=== PATIENT | female | born 2000 | race African-American/Black ===

== ENCOUNTER 2020-02-10 11:09 | Inpatient (IN) | payer OTHER ==
[2020-02-10] MEDS ORDERED: hydrALAZINE 20 MG/ML VIAL SLOW IVP PRN ×2 (11:56→22:14)
[2020-02-10 11:57] VITALS: BMI 26.2
--- NOTE | 2020-02-10 12:06 | PDOC.FPROB ---
FMR OB H&P: HPI - History of Present Illness Chief Complaint: elevated blood pressure History of Present Illness: 19 y/o at 34.5 wks 18.6 wk sono not c/w unsure LMP, sent from [facility] for elevated blood pressures in the severe range during her clinic appt this AM. She reports some elevated BPs on her past few visits. No known history of cHTN although has not had her BP checked outside of . She endorses swelling of the hands, face, and feet to her ankles. Reports her shoes are fitting more snugly than usual. Also endorses pressure like headache on the top of her head that has began since her arrival here in the hospital. Denies any vision changes, SOB, chest pain, palpitations, RUQ pain. Reports she was late to care but otherwise her has been uncomplicated. Per [facility] report she was having RUQ pain earlier today although she denies this here. No urinary complaints. No VB, LOF, vaginal discharge. Endorses movement. Primary Care Physician: JULY Echeverria FMR OB H&P: Current - Care : 2 Para: 0101 Gestational age: 34.5 wks Due date: 03/18/20 Dating Criteria: 18.6 wk sono not c/w unsure LMP Course/Complications: Late to care Trichomonas - treated, unsure of MATTHEW Tobacco use in - OB Labs Blood type: A RH: positive Antibody Screen: negative HIV: negative RPR: negative HepBsAg: negative Rubella: immune Quad screen: positive (Neural tube defect) Urine drug screen: positive (marijuana on) Gonorrhea: negative Chlamydia: negative FMR OB H&P: History - Past Medical History PMH: denies any PMHx - OB History OB History: Hx delivery at 36.5 wks - - METAL POLISHER History METAL POLISHER History: Hx trichimonas - treated - Surgical History Sx History: denies past surgeries - Social History Social History: Tobacco use - 5 cig/day prior to , 1-2 cig/day during Hx marijuana use before , denies during Denies etoh or other drug use - Family History Family History: Pt does not know family hx FMR OB H&P: Medications - Current Allergies/Adverse Reactions: Allergies Allergy/AdvReac Type Severity Reaction Status Date / Time No Known Drug Allergies Allergy Verified 02/10/20 12:01 FMR OB H&P: ROS - Review of Systems General: denies: fever/chills, fatigue Eyes: denies: vision changes, double vision, scotomas, floaters ENT: denies: nasal congestion, rhinorrhea, sore throat Cardiovascular: reports: edema. denies: chest pain, palpitation Respiratory: denies: cough, congestion, shortness of breath Gastrointestinal: reports: cramping. denies: abdominal pain, nausea, vomiting, diarrhea, constipation Genitourinary (Female): denies: dysuria, hematuria, polyuria, vaginal discharge, vaginal pain, vaginal bleeding, contractions, vaginal pressure Musculoskeletal: denies: pain Neurologic: reports: headache Integumentary: denies: rash Endocrine: denies: polyuria FMR OB H&P: Vital Signs - Maternal Vital signs: BP: 164/104 HR 54 SpO2 98% - Heart Tones Baseline: 155 Variability: minimal Acceleration: absent Deceleration: variable [place] contractions every: none FMR OB H&P: Physical Exam - Physical Exam General: NAD, awake, alert and oriented HEENT: normocephalic and atraumatic, MMM, grossly normal vision, grossly normal hearing, good dention Neck: supple, no LAD Heart: RRR, normal S1/S2, pulses present, other (mild pedal edema) General: CTAB, no respiratory distress, good air movement, no wheezing Abdomen: soft, gravid, non-tender, bowel sound present Musculoskeletal: pulses present Neurological: sensation to pain,touch and proprioception grossly normal, DTR +2, no clonus Skin: no rash Lymphatic: no unusual bruising or bleeding Psychiatric: intact recent and remote memory, good judgement and insight, normal mood and affect FMR OB H&P: A/P - Problem List (1) Current Visit: Yes Status: Acute Qualifiers: Weeks of gestation: 34 weeks Qualified Code(s): Z3A.34 - 34 weeks gestation of (2) affected by intrauterine growth retardation (IUGR) Current Visit: Yes Status: Acute Code(s): O36.5990 - MATERN CARE FOR OTH OR SUSP POOR FETL GRTH, UNSP TRI, UNSP (3) Substance abuse 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 Initially established care in [place]. Hx previous vaginal delivery 08/08/2016 - denies complications with prior or delivery. - cephalic on sono - FHT and toco monitoring - gave 1 dose steroids, repeat in 24 hours - collect GBS swab Pre-eclampsia w/ severe features Multiple severe range pressures with headache and swelling. - treat BP >160/110 - q15 min BP monitoring - hydralazine, labetalol PRN for severe pressures - will admit and start Mg - Mg check q2h - strict I/O and hourly UOP - check CBC, CMP, urine pr/cr ratio, uric acid, ldh - consider early induction pending clinic course IUGR S<D - less than 1% including adjustment for new G[place] after 18.6 wk sono. Referred to MFM in outpatient setting - growth + BPP ordered Tobacco use in Current tobacco use 2 cig/day - encourage tobacco cessation Positive quad screen Positive for neural tube defects - aware Marijuana use in Positive UDS in 10/2019; repeat UDS in 01/2020 cannabinoids reflexed and quant THC was neg. - check UDS today Hx trichomonas s/p treatment with metronidazole for patient and partner, no documented MATTHEW - Gc/ct, trichomonas collected today Social: KIRK lives in [place], not involved. Discussion: Date/Time: 02/10/20 2647 This H&P was discussed with Dr. Echeverria and Dr. Salgado who agree with the above documentation and plan. Addendum - Attending - Attending Attestation Date/Time: 02/10/20 8374 I personally evaluated the patient and discussed the management with resident team I agree with the History, Examination, Assessment and Plan documented above with any addition or exceptions noted below. Admit for preeclampsia with severe features. Start mag and steroids. Will determine route of delivery after US. Maddie
[2020-02-10] MEDS ORDERED: Labetalol HCl 100 MG/20 ML VIAL SLOW IVP ONE (12:15)
[2020-02-10] MEDS ORDERED: Labetalol HCl 100 MG/20 ML VIAL ONE (12:15)
[2020-02-10] MEDS ORDERED: Ondansetron PF 4 MG/2 ML Vial IVP PRN ×3 (12:16→22:14)
[2020-02-10] MEDS ORDERED: Promethazine HCl 25 MG/ML VIAL IM PRN ×2 (12:16→17:09)
[2020-02-10] MEDS ORDERED: Betamet Acet/Betamet Na Ph 30 MG/5 ML VIAL IM SCH (12:30)
[2020-02-10] MEDS ORDERED: Calcium Gluc 4.6 MEQ/10 ML (100 MG/ML) SLOW IVP PRN (12:32)
[2020-02-10] MEDS ORDERED: Magnesium Sulfate 20 GM/WATER 500 ML BAG IVPB SCH (12:45)
[2020-02-10] MEDS ORDERED: FLU VACC QS2020-21(6MOS UP)/PF 60 MCG/0.5 ML SYRINGE IM ONE (12:45)
[2020-02-10] MEDS ORDERED: hydrALAZINE 20 MG/ML VIAL SLOW IVP SCH (12:45)
[2020-02-10 13:08] LABS: Creatinine, Urine 47.23 mg/dL (47-110)
[2020-02-10 13:09] LABS: Platelet Count 105 thou/uL (130-400)
[2020-02-10 13:10] LABS: Hemoglobin 13.1 g/dL (12.0-16.0); Mean Corpuscular Hemoglobin 31.3 pg (25.0-35.0); Mean Corpuscular Volume 92.3 fL (78.0-98.0); Mean Platelet Volume 14.7 fL (7.4-10.4); RBC Distribution Width 17.9 % (11.5-14.5); Red Blood Cell (RBC) Count 4.18 mill/uL (4.00-5.20); White Blood Cell (WBC) Count 9.1 thou/uL (4.8-10.8)
[2020-02-10 13:25] LABS: HBSAg Index 0.17 S/CO (0-0.99); Hep B Surf Ag Non-Reactive S/CO (NonReactive)
[2020-02-10] MEDS: Magnesium Sulfate 20 gm/500 ml 20 GM/500 ML BAG IVPB SCH ×2 (13:26→21:40)
[2020-02-10 13:32] LABS: PTT 27.5 sec (22.9-36.1)
--- NOTE | 2020-02-10 13:35 | ULT ---
ULTRASOUND BIOPHYSICAL PROFILE: DATE: 02/10/2020 HISTORY: 19-year-old female. Evaluate for growth. FINDINGS: breathin tone: 2 movement: 2 Amniotic fluid volume: 0 IMPRESSION: Normal biophysical profile score of 4 out of 8, excluding the nonstress test.
[2020-02-10 13:41] LABS: #Eosinphils 0.1 thou/uL (0.0-0.7); #Lymphocytes 3.3 thou/uL (1.20-3.40); #Monocytes 0.6 thou/uL (0.11-0.59); #Neutrophils 5.3 thou/uL (1.40-6.50); %Basophils 0.5 % (0.0-1.0); %Eosinophils 0.9 % (0.0-10.0); %Lymphocytes 35.3 % (28.0-48.0); %Monocytes 6.6 % (0.0-4.0); %Neutrophils 56.7 % (31.0-61.0); Anisocytosis SLIGHT = 6-15 cells (100X) (0-5/hpf); Hemoglobin 12.9 g/dL (12.0-16.0); Large Platelets SLIGHT; MDiff Complete? YES; Mean Corpuscular HGB CONC 35.6 g/dL (32.0-36.0); Mean Corpuscular Hemoglobin 32.4 pg (25.0-35.0); Mean Corpuscular Volume 91.1 fL (78.0-98.0); Mean Platelet Volume 12.6 fL (7.4-10.4); Platelet Count 105 thou/uL (130-400); Platelet Morphology Comment Appears Decreased; Polychromasia MODERATE = 3-4 cells (100X) (0-2/hpf); RBC Distribution Width 16.9 % (11.5-14.5); Red Blood Cell (RBC) Count 3.98 mill/uL (4.00-5.20); Reflex for Review?? NO; Schistocytes MODERATE= 6-15 cells (100X) (0-1/hpf); Target Cells SLIGHT = 2-5 cells (100X) (0-1/hpf); Tear Drops SLIGHT = 2-5 cells (100X) (0-1/hpf); White Blood Cell (WBC) Count 9.4 thou/uL (4.8-10.8)
--- NOTE | 2020-02-10 13:44 | ULT ---
OB ULTRASOUND ULTRASOUND BIOPHYSICAL PROFILE: HISTORY: growth, distress FINDINGS: A single live intrauterine gestation is seen with measurements corresponding to an estimated gestatio nal age of 27 weeks, 1 dayand GERMAIN at 05/10/2020. The estimated weight measures 934 g or 2 pounds, 1 ounces biometry: BPD: 7.02 cm, 28 weeks 1 day HC: 25.61 cm, 27 weeks 6 days AC: 20.87 cm, 25 weeks 3 days FL: 5.06 cm, 27 weeks, 1 day heart rate: 139bpm Placenta: Posterior Placenta previa: No OTIS: 10.4cm OB biophysical profile: tone: 2 breathin movements: 2 Amniotic fluid:0 IMPRESSION: 1. Single live intrauterine gestation of 27 weeks 1 dayestimated gestational age and GERMAIN at 05/10/2020 2. The ultrasound biophysical profile score is 4 out of 8. 3. Oligohydramnios
[2020-02-10 14:04] LABS: ALT (SGPT) 18 U/L (8-55); AST (SGOT) 31 U/L (5-30); Albumin 3.2 g/dL (3.5-5.0); Alkaline Phosphatase 275 U/L (40-100); Anion Gap 17 mmol/L (10-20); BUN (Urea Nitrogen) 11 mg/dL (8.4-21.0); Bilirubin, Total 0.2 mg/dL (0.2-1.2); Calc. Creatinine Clearance 136 mL/min (70-130); Calcium 8.8 mg/dL (7.8-10.44); Carbon Dioxide 19 mmol/L (22-29); Chloride 105 mmol/L (98-107); Globulin 3.5 g/dL (2.4-3.5); Glucose 65 mg/dL (70-105); Potassium 4.7 mmol/L (3.5-5.1); Protein, Total 6.7 g/dL (6.0-8.3); Sodium 136 mmol/L (136-145); Uric Acid 5.2 mg/dL (2.6-6.0)
[2020-02-10] MEDS ORDERED: NS w/ Oxytocin 10 units 500 ML IV SCH (14:15)
--- NOTE | 2020-02-10 14:15 | PDOC.BPN ---
<Charisse Stovall - Last Filed: 02/10/20 14:26> - Brief Progress Note BPP: 6/8, with OTIS 4.4 (MVP 2.3). No breathing. BP several in severe range, started on treatment, Q15 min BP. BP improved. JONES present and improved since BP lowered. SVE: 3/50/-3 JOHNSTON score: 5 performing contraction stress test FHT'S: 155 baseline, with variable decels. no ctx. labs: plt 105 urine pro/cr 1 JONES Will order TORCH titers. Will send placenta for path collected GBS, GC/C/Trich Consult[employer] LEXA, and letting build master hospitalist know of her presence on floor. <Randi Salgado - Last Filed: 02/11/20 14:39> - Brief Progress Note Attending Note: Cat 2 to intermittent cat 1 tracing. Largely favorable cervical exam. Will attempt contraction stress test to see if vaginal delivery an option. Also discussed concerns for possible fragility of fetus for vaginal delivery if complications arise during 2nd stage. Maddie
[2020-02-10 15:31] LABS: SARS-CoV-2 NAA Rapid Test Not Detected (NotDetected)
[2020-02-10 15:33] LABS: Amphetamine Not Detected (NotDetected); Barbiturates Screen Not Detected (NotDetected); Benzodiazepine Screen Not Detected (NotDetected); Cocaine Metabolite Screen Not Detected (NotDetected); Medtox Control Line Valid? VALID (VALID); Medtox Reader # READER 1; Methadone Not Detected (NotDetected); Methamphetamine Not Detected (NotDetected); Opiate Screen Not Detected (NotDetected); Oxycodone Screen Not Detected (NotDetected); Phencyclidine (PCP) Not Detected (NotDetected); THC/Cannabinoid Screen Detected (NotDetected); Tricyclic Screen Not Detected (NotDetected)
[2020-02-10] MEDS ORDERED: Morphine PF 10 MG/10 ML VIAL ONE (15:53)
[2020-02-10] MEDS ORDERED: ePHEDrine 50 MG/ML VIAL ONE (15:54)
[2020-02-10] MEDS ORDERED: PHENYLEPHRINE-NS 100 MCG/ML 10 ML SYRINGE ONE (15:54)
[2020-02-10] MEDS ORDERED: Ketorolac Tromethamine 30 MG/ML VIAL ONE (15:54)
[2020-02-10] MEDS ORDERED: Oxytocin 10 UNITS/ML VIAL ONE ×2 (15:54→17:11)
[2020-02-10] MEDS ORDERED: Ondansetron PF 4 MG/2 ML Vial ONE (15:54)
[2020-02-10] MEDS ORDERED: Bicitra 30 ML UDCUP ONE (15:58)
--- NOTE | 2020-02-10 16:02 | PDOC.BPN ---
<Charisse Stovall - Last Filed: 02/10/20 15:57> - Brief Progress Note Pt has had minimal variability on FHT strip observed since admission. 130 baseline, with min variability, and intermittent accels, and variable decels present. Pt was given some fruit just, which did not help with the FHT's. pt experienced one contraction and fetus had a variable deceleration on on monitor. Pt was not able to undergo a contraction stress due to non-reassuring FHT's before starting. Due to pt not being near delivery, and non-reassuring FHT's, oligohydramnios, IUGR, and pre-e with severe features pt counseled on delivery via pLTCS. Pt is agreeable to plan. She was counseled on risk and benefits of procedures and consents to a pLTCS. Care plan discussed with Dr. Salgado, who is in agreement with above stated plan. <Randi Salgado - Last Filed: 02/11/20 14:36> - Brief Progress Note Attending Note: I was present during the above conversation. Maddie
[2020-02-10] MEDS ORDERED: CEFAZOLIN 2 GM in Premix Bag 1 BAG IVPB SCH (16:30)
[2020-02-10] MEDS ORDERED: Bicitra 30 ML UDCUP PO SCH (17:00)
[2020-02-10] MEDS ORDERED: Promethazine HCl 25 MG SUPP PR PRN (17:09)
[2020-02-10] MEDS ORDERED: Naloxone HCl 0.4 mg/ml Vial IVP PRN ×2 (17:09)
[2020-02-10] MEDS ORDERED: Meperidine HCl/PF 25 MG/ML VIAL SLOW IVP PRN (17:09)
[2020-02-10] MEDS ORDERED: Naloxone HCl 0.4 mg/ml Vial IV PRN (17:09)
[2020-02-10] MEDS ORDERED: diphenhydrAMINE 50 MG/ML VIAL IVP PRN (17:09)
[2020-02-10] MEDS ORDERED: Ketorolac Tromethamine 30 MG/ML VIAL IVP PRN (17:09)
[2020-02-10] MEDS ORDERED: HYDROmorphone 2 MG/ML VIAL SLOW IVP PRN (17:09)
[2020-02-10] MEDS ORDERED: L&D-Morphine 4 MG/ML VIAL SLOW IVP PRN (17:09)
[2020-02-10] MEDS ORDERED: Ondansetron HCl/PF 4 MG/2 ML Vial IVP PRN (17:09)
[2020-02-10] MEDS ORDERED: Communication Order-Pharmacy FS SCH (17:15)
[2020-02-10] MEDS ORDERED: Ketorolac Tromethamine 30 MG/ML VIAL IVP SCH (17:15)
--- NOTE | 2020-02-10 18:05 | PDOC.OPDEL ---
OB Operative/Delivery Note Delivery Dr/Surgeon: Dr. Stovall, with Dr. Salgado attending Assist: Dr. Reeves Pre-Delivery Diagnosis: non-reassuring tracing, other (Pre-E with severe features IUGR Oligohydramnios) Procedure/Post Delivery Dx: primary low transverse CS Weeks gestation: 34 (34.5) Anesthesia: spinal - Additional Findings/Plan Placenta delivered: manual removal findings: low transverse hysterotomy without extension Estimated blood loss: 140 mL Compilations/Other Findings: Date of Procedure: 02/10/20 Resident Surgeons: Dr. Stovall Attending Surgeon: Dr. Salgado Assist surgeon: Dr. Reeves Procedure: Primary low transverse caesarean section Preoperative Diagnosis: 1) Pre-Term intrauterine @ 34.5 weeks dated by 18.6 week sono 2) Severe IUGR <1% hadlock 3) Marijuana and tobacco use d/o 4) Oligohydramnios 5) Non-reassuring FHT's 6) Pre-E with severe features 7) Incomplete care 8) Hx of spontaneous labor/ delivery at 36 wks 9) GBS unknown Postoperative Diagnosis: 1) SGA Pre-Term delivered 2) same as above Anesthesia: spinal Indications: 19 year old @ 34.5 wks by 18.6 wk sono presents for Pre-E with severe features. Further workup and evaluation pt was found to have oligohydramnios, severe IUGR, and non-reassuring FHT's (persistent cat II tracing) leading to a primary LTCS due to being far from an imminent delivery. Procedure in Detail: After risks, benefits, and alternatives were explained to the patient, she gave informed consent. Pre-operative antibiotics included ancef 2 g. The patient was taken to the operating room and spinal anesthesia was placed. FHT with doppler demonstrated 140 prior to procedure. She was placed in the supine position with a left tilt and prepped and draped in usual sterile fashion. A Pfannenstiel incision was made with a scalpel and carried down to the level of the fascia which was sharply nicked. The fascial cut was extended bilaterally bluntly. The inferior and superior edges of the fascial edges were elevated with Eli clamps and the underlying rectus muscles bluntly and sharply dissected free. The recti were divided using blunt dissection. The peritoneum was entered bluntly and retracted manually. The uterus was palpated and found to be free of adhesions and very small. Karla-O was placed. There was a palpable lower uterine segment that was well developed. A low transverse score was made with the scalpel and the uterus was entered in the midline with the scalpel. Two babcocks were placed to assist with the lower unterine segment hysterotomy to prevent iatrogenic trauma to small infant. Amniotomy performed and there was no amniotic fluid visualized or suctioned. The hysterotomy was extended manually. The infant was noted to be vertex and was easily and gently delivered by fundal pressure. Cord blood milked, clamped and cut. A very small female was taken to the NICU warming table with Loop Machine Operator Dr. Barnes at bedside. Cord blood was obtained. Small placenta was manually extracted, found to be intact, with marginal insertions and small diameter 3 vessel cord. Sent to path. The uterus was externalized and curetted with a dry lap, while damp lap was placed over the fundus. Ring forcep was applied to the inferior hysterotomy edge for hemostasis and the endometrium was curetted with a dry lap. The hysterotomy was closed with a running locking 0-Monocryl in the usual fashion with tags on lateral edges. An imbricating layer was placed with a running 0-Monocryl in the usual fashion which achieved good hemostasis. The uterus was internalized and hysterotomy was again noted to be hemostatic. The karla-O was externalized. The hysterotomy tags were then cut. Posterior and lateral to the uterus was suctioned with the use of dry lap and yanker suction. The rectus was evaluated for bleeders, and found to be hemostatic. The fascia was closed with a running non-locking 0-PDS suture. The subcutaneous tissue was irrigated and the bleeders were attended to with bovie. The sub- cutaneous layer was closed with 3 interrupted plain gut suture. The skin was approximated with huyen and a pressure bandage was placed. All counts were correct X3. The patient tolerated the procedure well and was taken to LDR-10 for mag IV therapy in stable condition. QBL: 140 ml Time of delivery: 1651 Complications: None Specimens: placenta to path due IUGR, oligohydramnios Findings: SGA Pre-term female. Small placenta, marginal cord insertion and small 3VC. Drains: Sheth to gravity draining clear urine Attending Note: I was present and participated in the above documented procedure. Patient was a 19 yo female at 34.5 wks by 18.6 wk sono with severely growth restricted fetus, low amniotic fluid, preeclampsia with severe features, incomplete care, elevated msAFP, and polysubstance use. Patient admitted and quickly started on mag sulfate for seizure ppx. BMZ x 1 given. EFW < 1000g. Persistent cat 2 tracing with intolerance to labor. heart tracing noted to have deep varible decels with spontaneous contractions and minimal variblity. R/B/A discussed. Questions answered. Patient agreed with team that best option would be delivery via PLTCS due to size and heart rate findings. Yaron consulted and spoke with patient about outcome expectations. Laborist consulted and aware to case. Patient taken back to OR when available and the above procedure performed as do cumented. No complications. Count correct x 3. Will continue routine pp care and pp preE. Maddie Post delivery plan: recovery in LICU
[2020-02-10] MEDS ORDERED: Sodium Chloride 0.9% 1,000 ML IV SCH (21:15)
[2020-02-10 21:46] LABS: Hemoglobin 13.2 g/dL (12.0-16.0); Mean Corpuscular HGB CONC 34.1 g/dL (32.0-36.0); Mean Corpuscular Hemoglobin 30.9 pg (25.0-35.0); Mean Corpuscular Volume 90.7 fL (78.0-98.0); RBC Distribution Width 19.8 % (11.5-14.5); Red Blood Cell (RBC) Count 4.27 mill/uL (4.00-5.20); White Blood Cell (WBC) Count 21.9 thou/uL (4.8-10.8)
--- NOTE | 2020-02-10 21:47 | PDOC.PP ---
Post Progress Note Post Day #: 0 Subjective: We received a call from the nurse that patient had a rectal temperature of 92.5 and a pulse in the low 50s. We went up to see the patient. Patient states that she was feeling light-headed. Vitals: pulse 51, BP 134/75, 100 on RA. Denies headaches, vision changes, chest pain, shortness of breath. She notes mild pain at the incision site, mild vaginal bleeding, +flatus. Her UOP is 115cc/hr. PO intake tolerated: no Flatus: yes Ambulation: no Vital Signs (12 hours) Pulse BP 02/10/20 12:49 61 167/98 H 02/10/20 12:14 62 177/102 H Weight Weight 63.049 kg - Physical Examination General: NAD Cardiovascular: no m/r/g, RRR Respiratory: clear to auscultation bilaterally, non-labored breathing Abdominal: + bowel sounds, no distention, appropriately TTP Extremities: negative homans (B) Skin: CS incision dry & intact, no rash Neurological: no gross focal deficits Psychiatric: A&Ox3, normal affect Result Diagrams: 02/12/20 10:47 02/12/20 08:22 Additional Labs: Post Labs Hep Bs Antigen Non-Reactive S/CO (NonReactive) 02/10/20 12:29 Blood Type A POSITIVE 02/10/20 12:54 - Assessment/Plan 19 yo G2now P2 @ 34.5 weeks who delivered @ 1651 on 02/19, no complications, QBL 140 Delivery, pLTCs Delivery due to PreE with severe features and nonreassuring FHTs 4 hour post check, patient is hypothermic, bradycardic, BP and O2 sats stable, + light-headed - gave 1L LR bolus - ordered stat CBC, TSH, free T4, continuous temperatures PreEclampsia with severe features Pre-Csection BPs of 180/120, 170/120 Mag started immediately following delivery Current BPs 120s-130s systolic Mag check: UOP 115cc/hr, reflexes 3+ - repeat mag check in 4 hours I have discussed the patient with Dr. Galindo and he is agreement with the plan. Addendum - Attending - Attending Attestation Date/Time: 03/09/20 1009 I personally evaluated the patient and discussed the management with Dr. Valenzuela on 02/10/20. I agree with the History, Examination, Assessment and Plan documented above with any addition or exceptions noted below. Presumtpive sepsis d/t IUI. Cx and abx's. Stabilize hemodynamically.
[2020-02-10 22:12] LABS: Free T4 (Free Thyroxine) 0.74 ng/dL (0.70-1.48); Thyroid Stimulating Hormone 0.8393 uIU/mL (0.35-4.94)
[2020-02-10] MEDS ORDERED: Acetaminophen 325 MG TAB PO PRN (22:14)
[2020-02-10] MEDS ORDERED: diphenhydrAMINE 25 MG CAP PO PRN (22:14)
[2020-02-10] MEDS ORDERED: Adacel (T-DAP) 0.5 ML SYRINGE IM ONE (22:14)
[2020-02-10] MEDS ORDERED: Magnesium Sulfate 20 gm/500 ml 20 GM/500 ML BAG IVPB SCH (22:14)
[2020-02-10] MEDS ORDERED: Calcium Gluconate 4.6 MEQ in Sodium Chloride 0.9% 100 ML IVPB PRN (22:14)
[2020-02-10] MEDS ORDERED: Lactated Ringer's 1,000 ML IV SCH (22:15)
[2020-02-10] MEDS ORDERED: Docusate Calcium (SURFAK) 240 MG CAP PO SCH (22:30)
[2020-02-10 22:34] LABS: Band 10 % (5-11); Large Platelets SLIGHT; Lymphocytes 7 % (28-48); MDiff Complete? YES; Mean Platelet Volume 14.4 fL (7.4-10.4); Neutrophil 83 % (31-61); Platelet Count 118 thou/uL (130-400); Platelet Morphology Comment Appears Decreased; Schistocytes MODERATE= 6-15 cells (100X) (0-1/hpf)
[2020-02-10] MEDS ORDERED: Gentamicin 270 MG in Sodium Chloride 0.9% 100 ML IVPB SCH (23:30)
[2020-02-10] MEDS ORDERED: AMPicillin 2 MG in Syringe 0 ML SLOW IVP SCH (23:59)
[2020-02-11] MEDS: Ampicillin 2 GM in Sodium Chloride 0.9% 100 ML IVPB SCH ×2 (02:05→07:59)
--- NOTE | 2020-02-11 02:06 | PDOC.BPN ---
- Brief Progress Note Patient is a 19 yo G2now P2 @ 34.5 weeks who delivered @ 1651 on 02/19 via pLTCs due to PreE with severe features and nonreassuring FHTs, QBL 140. Patient is resting comfortably in bed. She states that she is still feeling a little light-headed. She denies chest pain, shortness of breath, vision changes. Notes mild abdominal pain at the incision site. Heart: RRR no MRG Lungs: CTAB HEENT: patient has dry mucous membranes Skin: incision clean, dry and intact LE: no edema, patellar reflexes 2+ Vitals: 100s-120s systolic bps, pulse now 60s-70s, last temperature 97.6 UOP: 115cc/hr A/P PreEclampsia with severe features Pre-Csection BPs of 180/120, 170/120 Mag started immediately following delivery 02/19 @ 1651 Current BPs 100s-130s systolic Mag check: UOP 115cc/hr, reflexes 2+ NPO d/t mag checks, pt appears dry - mIVFs @ 100 - repeat mag check in 4 hours Endometritis Hypothermia resolved, no longer bradycardic TSH, FreeT4 wnl; CBC showed white count 21.6, Hgb 13 - patient started on gentmycin and ampicillin for 24 hrs - continuous temperature monitoring - continue jodi
[2020-02-11] MEDS: Lactated Ringer's 1,000 ML IV SCH ×2 (03:55→17:52)
--- NOTE | 2020-02-11 05:47 | PDOC.BPN ---
- Brief Progress Note Patient is a 19 yo G2now P2 @ 34.5 weeks who delivered @ 1651 on 02/19 via pLTCs due to PreE with severe features and nonreassuring FHTs, QBL 140. Patient is resting comfortably in bed. She states that she is having a mild room-spinning dizziness when she moves around a lot. She denies chest pain, shortness of breath, vision changes. Notes mild abdominal pain at the incision site. Heart: RRR no MRG Lungs: CTAB HEENT: patient has dry mucous membranes Skin: incision clean, dry and intact LE: no edema, patellar reflexes 2+ Vitals: 100s-110s systolic bps, pulse now 60s-70s, last temperature 97.6 UOP: 125cc/hr A/P PreEclampsia with severe features Pre-Csection BPs of 180/120, 170/120 Mag started immediately following delivery 02/19 @ 1651 Current BPs 100s-110s systolic Mag check: UOP 125cc/hr, reflexes 2+ - continue mIVFs @ 100 - repeat mag check in 4 hours Endometritis Hypothermia resolved, no longer bradycardic TSH, FreeT4 wnl; CBC showed white count 21.6, Hgb 13 - patient started on gentmycin and ampicillin for 24 hrs - no longer on bear-hugger - continue vitals q4hr
--- NOTE | 2020-02-11 06:36 | PDOC.FM ---
- Objective Vital Signs & Weight: Weight Weight 63.049 kg I&O: 02/09/20 02/10/20 02/11/20 06:59 06:59 06:59 Output Total 200 Balance -200 Result Diagrams: 02/10/20 21:24 02/10/20 12:25 Dx/Plan - Plan Plan: 19 yo G2P 0101 now s/p pLTCS @ 34.5 WGA by 18.6 wk sono for preE with severe features, NRFHTs with oligo and IUGR PPD#1 pLTCS @ 34.5 by 18.6 wk sono -s/p 1 dose betamethasone prior to CS -PRN Effie for pain -LILIBETH bowel regimen PreE with Severe Features -Continue magnesium for 24 hrs post pLTCS @ 1651 on 02/09 -continue 4 hr mag checks -PRN antihypertensives for BP >150/100 PP Endometritis -Hypothermia overnight, RAYMUNDO allan started. WBC 21.9 this AM -Amp and Gent started @ 2350 02/09, continue for 24 hours -Bl cx pending Illicit drug use and tobacco abuse during -maternal UDS +cannabinoids -MDS and UDS on baby pending -case management consulted Oligohydramnios +Quad screen for NTD -aware +Trich - negative VP3 yesterday; GCC, HIV, RPR pending IUGR infant -<1% -TORCH titers pending Dispo: Admitted to L&D, monitoring BP and other vitals closely, as well as UOP. Continue abx and magnesium. Likely DC 2-3 days. Diet: Clears PCP: [facility] DVT ppx: SCDs
[2020-02-11] MEDS ORDERED: hydrALAZINE 20 MG/ML VIAL SLOW IVP PRN (07:05)
[2020-02-11 08:05] LABS: Hemoglobin 12.1 g/dL (12.0-16.0); Mean Corpuscular HGB CONC 34.9 g/dL (32.0-36.0); Mean Corpuscular Hemoglobin 31.7 pg (25.0-35.0); Mean Corpuscular Volume 90.8 fL (78.0-98.0); Mean Platelet Volume 15.4 fL (7.4-10.4); Platelet Count 103 thou/uL (130-400); Red Blood Cell (RBC) Count 3.82 mill/uL (4.00-5.20); White Blood Cell (WBC) Count 30.5 thou/uL (4.8-10.8)
[2020-02-11 08:28] LABS: HIV (1/2) Antibody/Antigen Non-Reactive (NonReactive); HIV 1/2 INDEX 0.08 S/CO (<1.00)
--- NOTE | 2020-02-11 08:31 | PDOC.PP ---
Post Progress Note Post Day #: 1 Subjective: Reports headache is gone. She does feel dizzy and lightheaded. She denies chest pain, SOB, cough, palpitations. PO intake tolerated: yes Flatus: yes Ambulation: yes Weight Weight 63.049 kg - Physical Examination General: NAD Cardiovascular: RRR Deviation from normal: 2/6 systolic murmur Deviation from normal: mild expiratory wheezing diffusely Abdominal: + bowel sounds, lochia (minimal), no distention, appropriately TTP Fundus firm & at: below umbilicus Extremities: negative homans (B) Skin: CS incision dry & intact Neurological: no gross focal deficits Deviation from normal: Eyes PERRLA, patellar reflexes 2+, Neg ankle hyperreflexia Psychiatric: A&Ox3, normal affect Result Diagrams: 02/11/20 07:37 02/11/20 11:16 Additional Labs: Post Labs Hep Bs Antigen Non-Reactive S/CO (NonReactive) 02/10/20 12:29 Blood Type A POSITIVE 02/10/20 12:54 - Assessment/Plan 19 yo G2P 0101 now s/p pLTCS @ 34.5 WGA by 18.6 wk sono for preE with severe features, NRFHTs with oligo and IUGR PPD#1 pLTCS @ 34.5 by 18.6 wk sono -Pain well controlled -PRN [place] for pain -LILIBETH bowel regimen PreE with Severe Features -Pt s/p pLTCS yesterday after 1 dose mag -Continue magnesium for 24 hrs post pLTCS @ 1651 on 02/09 -continue 4 hr mag checks -UOP adequate at 125 ml/hr for past four hours -PRN antihypertensives for BP >150/100 PP Endometritis -Hypothermia overnight, RAYMUNDO hugger started. WBC elevated but pt received steroids -Amp and Gent started @ 2350 02/09, continue for 24 hours -Bl cx pending Illicit drug use and tobacco abuse during -maternal UDS +cannabinoids -case management consulted Oligohydramnios -OTIS 4.4 -BPP 4/8 +Quad screen for NTD -aware +Trich - negative VP3 yesterday; GCC, HIV, RPR pending IUGR infant -<1% -TORCH titers pending Dispo: Admitted to L&D, monitoring BP and other vitals closely, as well as UOP. Continue abx and magnesium. Likely DC 2-3 days. Diet: Clears PCP: Jacki [facility] DVT ppx: SCDs Addendum - Attending - Attending Attestation Date/Time: 02/11/20 1003 I personally evaluated the patient and discussed the management with resident I agree with the History, Examination, Assessment and Plan documented above with any addition or exceptions noted below. Patient doing well. Pain controlled. Some dizziness and feeling fatigued at this time. Mild/appropriate lochia. VSS. Afebrile. No temp instability. BP WNL. UOP up to 400 mL per hour II/IV murmur on exam, PMI in left axillary line, no JVD - POD/PPD#1: Continue routine pp care. Monitor for pain control. - Preeclampsia with severe features: Appears to be symptomatic to mag. Therapeutic range. Will decrease to 1. Asymptomatic otherwise. BP WNL. Labs stable. Continue mag for 24 hours post delivery. Good diuresis. Lower risk for seizure at this time. May advance diet to full liquids. - Hypothermia: Unsure etiology but suspecting environment with possible IVFs. Now resolved. Will check inflammatory/infection markers. If negative will stop antibiotics. - Polysubstance use: Marijuana and tobacco use throughout . CM consult. - Hx of spontaneous labor and delivery - Oligo - Severe FGR: 34.5 wk gestational age less than 1000g at - Incomplete care: CM consulted. - Elevated msAFP: No prior MFM scan Follow up labs and continue q4 hour mag checks ABrayMD
[2020-02-11 10:40] LABS: Syphilis Antibody Nonreactive (Nonreactive); Syphilis Antibody Index 0.04 S/CO (<1.00 Non-Reactive)
[2020-02-11 12:10] LABS: Troponin I Less than 0.010 ng/mL (< 0.028)
[2020-02-11 12:21] LABS: ALT (SGPT) 23 U/L (8-55); AST (SGOT) 35 U/L (5-30); Alkaline Phosphatase 222 U/L (40-100); Anion Gap 17 mmol/L (10-20); BUN (Urea Nitrogen) 9 mg/dL (8.4-21.0); Bilirubin, Total 0.3 mg/dL (0.2-1.2); CRP (Inflammatory) 0.93 mg/dL (= or < 0.5); Calc. Creatinine Clearance 148 mL/min (70-130); Calcium 7.2 mg/dL (7.8-10.44); Carbon Dioxide 20 mmol/L (22-29); Chloride 100 mmol/L (98-107); Globulin 3.2 g/dL (2.4-3.5); Glucose 92 mg/dL (70-105); Potassium 4.8 mmol/L (3.5-5.1); Protein, Total 6.2 g/dL (6.0-8.3); Sodium 132 mmol/L (136-145)
--- NOTE | 2020-02-11 12:34 | PDOC.BPN ---
<Taylor Reeves - Last Filed: 02/11/20 12:29> - Brief Progress Note Encounter Date: 02/11/20 Encounter Time: 12:00 4 Hour Mag Check S: feeling hungry, no additional complaints at this time O: resting comfortably in bed, talking on phone with family; patellar reflexes 2+ bilaterally, no clonus, moving all 4 extremities. Urine output >200 cc/hr over the past 6 hours. BP has been 110s/60s since last check. A/P: Pre-eclampsia w/severe features: - Adequate UOP, continue strict I/O - On Mg, no evidence of Mg toxicity on physical exam. Continue to monitor & re- examine in 4 hours. Will continue Mg until 24h post-, which will be later this afternoon. - No elevated BP since last check. Continue to monitor vitals. Pseudohypocalcemia: Received page regarding low Ca of 7.2. When corrected for low albumin of 3.0 the Ca is in normal range at 8.0. No interventions at this time. Henrietta Reeves DO, PGY-1 <Randi Salgado - Last Filed: 02/11/20 14:02> - Brief Progress Note Attending Note: Patient seen and evaluated alongside resident. Agree with A&P. - POD/PPD#1: Continue routine care. Pain controlled. - Preeclampsia with severe features: Continue mag x 24 hours after delivery. BP WNL. Started to become symptomatic with mag even at therapeutic range. Decreased this AM and now symptoms of dizziness improved. Now with good diuresis. Will start to slowly feed. Less risk for seizure at this time. Risk for cardiovascular complications. Will need ASA with future pregnancies. - hx of labor with delivery - spontaneous x1 and medically indicated x1 - Polysubstance use: Tobacco and marijuana - Incomplete care: Case management consulted to make sure all social issues are accounted for - Other complications - oligo, elevated msAFP, severe FGR Maddie
[2020-02-11] MEDS: HYDROcodone/Acetaminophen 5/325 mg Tablet PO PRN ×2 (17:22→22:01)
[2020-02-11] MEDS: Docusate Calcium (SURFAK) 240 MG CAP PO SCH ×2 (17:52→20:53)
[2020-02-11] MEDS: Prenatal Vitamin 1 TAB PO SCH (17:52)
[2020-02-11] MEDS: Ibuprofen 800 MG TAB PO PRN (20:53)
[2020-02-12] MEDS: Lactated Ringer's 1,000 ML IV SCH (04:53)
[2020-02-12] MEDS: Ibuprofen 800 MG TAB PO PRN (05:13)
--- NOTE | 2020-02-12 07:41 | PDOC.PP ---
Post Progress Note Post Day #: 2 Subjective: Feeling well, no compliants. Denies pain. Denies SOB/chest pain/headache. Eating, voiding, passing flatus, ambulating, minimal lochia. Vital Signs (12 hours) Temp Pulse Resp BP 02/12/20 00:05 98.7 F 74 16 117/72 Weight Weight 63.049 kg - Physical Examination General: NAD Cardiovascular: no m/r/g, RRR Respiratory: clear to auscultation bilaterally, non-labored breathing Abdominal: + bowel sounds, lochia (minimal), no distention, appropriately TTP Extremities: negative homans (B) Skin: CS incision dry & intact, no rash Neurological: no gross focal deficits Psychiatric: A&Ox3, normal affect Result Diagrams: 02/12/20 10:47 02/12/20 08:22 Additional Labs: Post Labs Hep Bs Antigen Non-Reactive S/CO (NonReactive) 02/10/20 12:29 Blood Type A POSITIVE 02/10/20 12:54 - Assessment/Plan 19 yo G2P 0101 now s/p pLTCS (on 02/09) @ 34.5 WGA by 18.6 wk sono for preE with severe features, NRFHTs with oligo and IUGR PPD#2 pLTCS @ 34.5 by 18.6 wk sono -Pain is well controlled. PRN [place] for pain. LILIBETH bowel regimen. -Baby in NICU for low weight and low sugars PreE with Severe Features -s/p 24 hour mag -SBP 110s for past 24 hours -Repeat CMP pending PP Endometritis -Pt had low temps, possibly 2/2 environmental factors. Amp and Gent DCed ye sterday after inflammatory markers were reassuring for no s/s of infection. WBC decreased today. -Bl cx pending Illicit drug use and tobacco abuse during -maternal UDS +cannabinoids -case management consulted, CPS consulted Oligohydramnios -OTIS 4.4 -BPP 4/8 prior to delivery +Quad screen for NTD -aware +Trich - negative VP3, HIV, RPR negative; GCC pending IUGR infant -<1% -TORCH titers pending Late to Care -CM consulted. CPS case opened. Thrombocytopenia -Plt 103 today, stable Dispo: Admitted to PP, continue monitoring today, likely DC to home tomorrow Diet: Regular PCP: Jacki [facility] DVT ppx: SCDs Addendum - Attending - Attending Attestation Date/Time: 02/12/20 8893 I personally evaluated the patient and discussed the management with resident team I agree with the History, Examination, Assessment and Plan documented above with any addition or exceptions noted below. Continue to monitor overnight due to risk for return of preE symptoms. Less than 24 hours off mag sulfate. Still at risk for seizure. Pain controlled. Encourage ambulation. Wound healing well. Please note, patient does not have endometritis. Will stop antibx. Maddie
[2020-02-12] MEDS: HYDROcodone/Acetaminophen 5/325 mg Tablet PO PRN ×2 (07:47→13:11)
[2020-02-12] MEDS: Prenatal Vitamin 1 TAB PO SCH (07:47)
[2020-02-12 08:31] LABS: #Lymphocytes 3.3 thou/uL (1.20-3.40); #Monocytes 0.9 thou/uL (0.11-0.59); #Neutrophils 17.8 thou/uL (1.40-6.50); %Basophils 0.2 % (0.0-1.0); %Lymphocytes 14.9 % (28.0-48.0); %Monocytes 4.2 % (0.0-4.0); %Neutrophils 80.6 % (31.0-61.0); Hemoglobin 10.5 g/dL (12.0-16.0); Mean Corpuscular HGB CONC 32.9 g/dL (32.0-36.0); Mean Corpuscular Hemoglobin 30.3 pg (25.0-35.0); Mean Corpuscular Volume 92.1 fL (78.0-98.0); Platelet Count 103 thou/uL (130-400); RBC Distribution Width 20.4 % (11.5-14.5); Red Blood Cell (RBC) Count 3.46 mill/uL (4.00-5.20)
[2020-02-12 08:54] LABS: ALT (SGPT) 22 U/L (8-55); AST (SGOT) 30 U/L (5-30); Albumin 2.8 g/dL (3.5-5.0); Alkaline Phosphatase 181 U/L (40-100); Anion Gap 10 mmol/L (10-20); BUN (Urea Nitrogen) 16 mg/dL (8.4-21.0); Bilirubin, Total 0.3 mg/dL (0.2-1.2); Calc. Creatinine Clearance 132 mL/min (70-130); Calcium 7.8 mg/dL (7.8-10.44); Carbon Dioxide 24 mmol/L (22-29); Chloride 106 mmol/L (98-107); Glucose 84 mg/dL (70-105); Potassium 5.1 mmol/L (3.5-5.1); Protein, Total 5.8 g/dL (6.0-8.3); Sodium 135 mmol/L (136-145)
[2020-02-12 09:51] LABS: Band 6 % (5-11); Lymphocytes 20 % (28-48); MDiff Complete? YES; Neutrophil 73 % (31-61); Polychromasia MODERATE = 3-4 cells (100X) (0-2/hpf); Reactive Lymphocytes 1 % (0-10); Schistocytes MODERATE= 6-15 cells (100X) (0-1/hpf)
[2020-02-12 09:53] LABS: Monocytes 2 % (0-4)
[2020-02-12 12:19] LABS: Hemoglobin 10.4 g/dL (12.0-16.0); MDiff Complete? YES; Mean Corpuscular HGB CONC 33.3 g/dL (32.0-36.0); Mean Corpuscular Hemoglobin 30.8 pg (25.0-35.0); Mean Corpuscular Volume 92.5 fL (78.0-98.0); Mean Platelet Volume 13.7 fL (7.4-10.4); Platelet Count 107 thou/uL (130-400); RBC Distribution Width 20.6 % (11.5-14.5); Red Blood Cell (RBC) Count 3.37 mill/uL (4.00-5.20)
[2020-02-12 12:20] LABS: Band 4 % (5-11); Large Platelets SLIGHT; Lymphocytes 22 % (28-48); Monocytes 1 % (0-4); Neutrophil 73 % (31-61); Platelet Morphology Comment Appears Decreased; Polychromasia MODERATE = 3-4 cells (100X) (0-2/hpf); Schistocytes MODERATE= 6-15 cells (100X) (0-1/hpf); Spherocytes SLIGHT = 1-5 cells (100X) (None Seen)
[2020-02-12] MEDS: Docusate Calcium (SURFAK) 240 MG CAP PO SCH ×2 (16:54→21:12)
[2020-02-12] MEDS: HYDROcodone/Acetaminophen 10/325 mg Tablet PO PRN ×2 (17:03→22:06)
[2020-02-12 22:36] LABS: HSV-2 IgG Type Specific Less than 0.91 index (0.00-0.90); Rubella IgM ABS Less than 20.0 AU/mL (0.0-19.9); Toxoplasma IgG AB Less than 3.0 IU/mL (0.0-7.1); Toxoplasma IgM ABS Less than 3.0 AU/mL (0.0-7.9)
--- NOTE | 2020-02-13 08:53 | PDOC.PP ---
Post Progress Note Post Day #: 2 Subjective: Reports ambulating, passing flatus, voiding. She reports crampy abdominal pain, states norco and ibuprofen help. Minimal lochia. She would like to go home today if possible. Denies CP, palpitations, SOB, cough, lightheadedness, headache. PO intake tolerated: yes Flatus: yes Ambulation: yes Vital Signs (12 hours) Temp Pulse Resp BP 02/13/20 04:00 98.8 F 71 18 104/72 Weight Weight 58.06 kg - Physical Examination General: NAD Cardiovascular: no m/r/g, RRR Respiratory: clear to auscultation bilaterally, non-labored breathing Abdominal: + bowel sounds, lochia ( minimal), no distention, appropriately TTP Fundus firm & at: below umb Skin: CS incision dry & intact, no rash Neurological: no gross focal deficits Psychiatric: A&Ox3, normal affect Result Diagrams: 02/12/20 10:47 02/12/20 08:22 Additional Labs: Post Labs Hep Bs Antigen Non-Reactive S/CO (NonReactive) 02/10/20 12:29 Rubella IgG Antibody 5.00 index (Immune >0.99) 02/10/20 15:50 Blood Type A POSITIVE 02/10/20 12:54 - Assessment/Plan 19 yo G2P 0101 now s/p pLTCS (on 02/09) @ 34.5 WGA by 18.6 wk sono for preE with severe features, NRFHTs with oligo and IUGR PPD#3 pLTCS @ 34.5 by 18.6 wk sono -PRN [place] for pain. LILIBETH bowel regimen. PreE with Severe Features -s/p 24 hour mag, BP wnl PP Endometritis -Bl cx NGTD -GBS swab cx pending Illicit drug use and tobacco abuse during -maternal UDS +cannabinoids -case management consulted, CPS consulted Oligohydramnios +Quad screen for NTD -aware +Trich - negative VP3, HIV, RPR negative -GCC still pending IUGR -<1% -TORCH titers pending Late to Care -CM consulted. CPS case opened. Thrombocytopenia -Plt 107 stable Dispo: Plan to DC today to home. Consider staple removal today vs removal tomorrow outpatient. DC with few norco Diet: Regular PCP: Buse [facility] DVT ppx: SCDs Addendum - Attending - Attending Attestation Date/Time: 02/13/20 1011 I personally evaluated the patient and discussed the management with resident team I agree with the History, Examination, Assessment and Plan documented above with any addition or exceptions noted below. Please note, there was no evidence of pp endometritis. Pt off mag for 24 hours. No return of symptoms. BP normotensive. Good UOP. Pain controlled. Lochia appropriate. Follow up on Monday to have huyen removed. At risk for CV complications. Will need ASA in future pregnancies. Need to address contraception needs at follow up outpatient OV. Maddie
[2020-02-13] MEDS: Prenatal Vitamin 1 TAB PO SCH (08:59)
[2020-02-13] MEDS: HYDROcodone/Acetaminophen 10/325 mg Tablet PO PRN (08:59)
[2020-02-13] MEDS: Docusate Calcium (SURFAK) 240 MG CAP PO SCH (08:59)
[2020-02-13] MEDS ORDERED: Simethicone Chewable 80 MG TAB PO PRN (09:08)
[2020-02-13 10:24] VITALS: BP 134/63; TEMP 98.1
[2020-02-13] MEDS: Ampicillin 2 GM in Sodium Chloride 0.9% 100 ML IVPB SCH (10:33)
[2020-02-13 21:35] LABS: Chlamydia by PCR Not Detected (NotDetected); GC by PCR Not Detected (NotDetected)
--- NOTE | 2020-02-17 03:29 | PQF ---
Dear : Randi Salgado Date 02/17/2020 Please exercise your independent, professional judgment in responding to the clarification form. Clinical indicators are provided on the bottom of this form for your review Can you please further clarify the diagnosis of the patient? ___ Final Diagnosis on the Pathology report: Acute chorioamnionitis Clarification of Pathology report: Please check appropriate box(es): [x ] Agree w the pathology finding of: Acute chorioamnionitis [ ] Other explanation of pathology findings (please specify) [ ] Other diagnosis please specify [ ] Unable to determine Physician Signature: Date/Time: For continuity of documentation, please document condition throughout progress notes and discharge summary. Thank You. To be completed by CDI/Coding staff for physician review: Present Clinical Indicators - Signs / Symptoms / Labs Results and Location in Medical Record [ x ] membranes--- Acute chorioamnionitis Pathology report pg.1 [ x ] 19 y/o at 34.5 weekss H and P pg.1 [ x ] Severe IUGR H and P pg.2 [ x ] Oligohydramnios OP report pg.1 [ x ] WBC: 9.4, 9.1, 21.9H, 30.5H, 22.0H, 19.0H Laboratory Present Risk Factors Results and Location in Medical Record [ x ] Tobacco use in H and P pg.1 [ x ] Hx marijuana use H and P pg.1 [ x ] Preeclampsia with severe features H and P pg.4 [ x ] OP report pg.1 [ x ] Non- reassuring FHTs OP report pg.1 [ x ] Incomplete care OP report pg.1 Present Treatments Results and Location in Medical Record [ x ] ultrasound 02/09 [ x ] IV Fluids MAR [ x ] Cefazolin 2gm IV MAR [ x ] Ampicillin 2gm IV MAR CDS/[employer] Signature: PatyJimmy dillon Farhadodalisnoé Phone #: ext [phone] Date 02/17/20 This is a permanent part of the Medical Record [facility]
== END 2020-02-13 14:25 | disposition home or self-care (01) | DRG 786 ==
LOC: L&D/OP 11:09 → L&D-LIB 12:16 → 3SW 02-11 18:36
PROVIDERS: ADMIT Student in an Organized Health Care Education/Training Program; ATTEND Student in an Organized Health Care Education/Training Program
PROC: 10D00Z1 Extraction of Products of Conception, Low, Open Approach (ICD-10-PCS; principal; 2020-02-10)
DX: O14.14 Severe pre-eclampsia complicating childbirth (principal); O41.1230 Chorioamnionitis, third trimester, not applicable or unspecified; O41.03X0 Oligohydramnios, third trimester, not applicable or unspecified; Z20.828 Contact with and (suspected) exposure to other viral communicable diseases; O99.324 Drug use complicating childbirth; O99.334 Smoking (tobacco) complicating childbirth; F17.210 Nicotine dependence, cigarettes, uncomplicated; O36.5930 Maternal care for other known or suspected poor fetal growth, third trimester, not applicable or unspecified; F12.90 Cannabis use, unspecified, uncomplicated; Z3A.34 34 weeks gestation of pregnancy; Z37.0 Single live birth; O76 Abnormality in fetal heart rate and rhythm complicating labor and delivery; O86.12 Endometritis following delivery; O72.3 Postpartum coagulation defects; D69.6 Thrombocytopenia, unspecified
CPT/HCPCS: 36415; 36416; 51702; 76815; 76819; 80053; 80306; 82570; 83615; 83735; 83880; 84145; 84156; 84439; 84443; 84484; 84550; 85025; 85027; 85060; 85610; 85652; 85730; 86140; 86644; 86696; 86698; 86762; 86777; 86780; 86850; 86900; 86901; 87040; 87081; 87340; 87389; 87480; 87491; 87510; 87591; 87660; 88307; 99285; J0290; J0360; J0690; J0702; J1580; J1885; J2270; J2405; J3475; J3490; U0002

== ENCOUNTER 2021-11-04 12:43 | Emergency (ER) | payer OTHER | END 2021-11-04 14:13 | disposition home or self-care (01) | LOC: ERS 12:43 | DX: K04.7 Periapical abscess without sinus (principal) | CPT/HCPCS: 99282 ==

== ENCOUNTER 2022-05-13 07:31 | Emergency (ER) | payer OTHER ==
[2022-05-13 08:15] LABS: Bilirubin Negative (Negative); Blood, Urine Negative (Negative); Clarity Clear (Clear); Glucose, Urine (Dipstick) Normal (Negative); Ketone, Urine Negative (Negative); Leukocyte Negative Leu/uL (Negative); Nitrite Negative (Negative); Protein, Urine (Dipstick) Negative (Neg-Trace); Specific Gravity, Urine 1.025 (1.002-1.036); Urobilinogen Normal mg/dL (Less than 2); pH, Urine 5.5 (5.0-9.0)
[2022-05-13 08:16] LABS: Pregnancy Test - Urine (BHCG) Negative (Negative); Pregu Control Background? CLEAR/WHITE (CLR/WHITE); Pregu Control Bar Appear? YES (CONTROL BAR); Specific Gravity 1.025 (1.002-1.036)
== END 2022-05-13 10:06 | disposition home or self-care (01) ==
LOC: ERS 07:31
DX: R10.9 Unspecified abdominal pain (principal)
CPT/HCPCS: 76856; 81003; 81025; 93976

== ENCOUNTER 2022-10-08 11:39 | Emergency (ER) | payer OTHER | END 2022-10-08 12:31 | disposition home or self-care (01) | LOC: ERS 11:39 | DX: K04.7 Periapical abscess without sinus (principal) | CPT/HCPCS: 99282 ==

== ENCOUNTER 2022-11-15 07:46 | Emergency (ER) | payer OTHER ==
[2022-11-15 08:20] LABS: Bacteria/HPF None Seen HPF (None Seen); Bilirubin Negative (Negative); Blood, Urine Negative (Negative); CAUTI Indications for Culture Pregnancy; Clarity Clear (Clear); Glucose, Urine (Dipstick) Normal (Negative); Ketone, Urine Negative (Negative); Leukocyte Negative Leu/uL (Negative); Nitrite Negative (Negative); Protein, Urine (Dipstick) 20 mg/dL (Neg-Trace); RBC/HPF 0-3 HPF (0-3); Urobilinogen Normal mg/dL (Less than 2); WBC/HPF 0-3 HPF (0-3); pH, Urine 6.5 (5.0-9.0)
[2022-11-15 08:38] LABS: Urine Culture Reflex Yes Yes
== END 2022-11-15 09:02 | disposition home or self-care (01) ==
LOC: ERS 07:46
DX: O20.0 Threatened abortion (principal); Z3A.25 25 weeks gestation of pregnancy
CPT/HCPCS: 81001; 87086; 99284

== ENCOUNTER 2023-01-22 14:56 | Emergency (ER) | payer MEDICAID, OTHER, SELFPAY ==
[2023-01-22] MEDS ORDERED: Labetalol HCl 100 MG/20 ML VIAL ONE (15:13)
[2023-01-22] MEDS ORDERED: hydrALAZINE 20 MG/ML VIAL ONE (15:14)
[2023-01-22] MEDS ORDERED: Magnesium 2 GM/50 ML BAG (IN WATER) ONE (15:15)
[2023-01-22] MEDS ORDERED: NIFEdipine 10 MG CAP PO SCH (15:45)
== END 2023-01-22 16:30 | disposition short-term general hospital (02) ==
LOC: ERS 14:56
DX: O26.893 Other specified pregnancy related conditions, third trimester (principal); O16.3 Unspecified maternal hypertension, third trimester; F17.290 Nicotine dependence, other tobacco product, uncomplicated; Z3A.37 37 weeks gestation of pregnancy
CPT/HCPCS: 96365; 96375; 96376; J0360; J3475